=== PATIENT | male | born 1950 | race Asian ===

== ENCOUNTER 2023-11-27 01:44 | Emergency (ER) | payer OTHER ==
[~2023-11-27] VITALS: Ht 177.8 cm; Wt 104.3 kg
[2023-11-27 01:47] VITALS: TEMP 98.9
[2023-11-27] MEDS: IV NS 0.9% 500 ML BAG IV ONE (02:12)
[2023-11-27 02:19] LABS: BASOPHILS # (AUTO) 0.1 K/uL (0.0-0.2); BASOPHILS % (AUTO) 0.9 % (0.0-2.0); EOSINOPHILS # (AUTO) 0.2 K/uL (0.0-0.7); EOSINOPHILS % (AUTO) 2.3 % (0.0-6.0); HEMATOCRIT 34 % (39-51); HEMOGLOBIN 11.3 g/dL (13.5-17.5); LYMPHOCYTES # (AUTO) 1.2 K/uL (0.8-4.8); LYMPHOCYTES % (AUTO) 12.3 % (20.0-44.0); MEAN CORPUSCULAR HEMOGLOBIN 30 PG (26.0-33.0); MEAN CORPUSCULAR HGB CONC 33 g/dl (31.0-36.0); MEAN CORPUSCULAR VOLUME 90 fL (80-96); MONOCYTES # (AUTO) 0.8 K/uL (0.1-1.30); MONOCYTES % (AUTO) 8.6 % (2.0-12.0); NEUTROPHILS # (AUTO) 7.3 K/uL (1.8-8.9); NEUTROPHILS % (AUTO) 75.9 % (43.0-81.0); PLATELET COUNT (AUTO) 263 K/uL (150-450); RED CELL DISTRIBUTION WIDTH 14.8 % (11.5-15.0); WHITE BLOOD COUNT (AUTO) 9.6 K/uL (4.3-11.0)
[2023-11-27 02:32] LABS: ALANINE AMINOTRANSFERASE 32 U/L (12-78); ALBUMIN 2.8 g/dL (3.4-5.0); ALKALINE PHOSPHATASE 132 U/L (46-116); ASPARTATE AMINOTRANSFERASE 24 U/L (15-37); BILIRUBIN,DIRECT 0.1 mg/dL (0.0-0.2); BILIRUBIN,TOTAL 0.4 mg/dL (0.2-1.0); CALCIUM, SERUM 8.5 mg/dL (8.5-10.1); CARBON DIOXIDE 24 mmol/L (21-32); CHLORIDE 100 mmol/L (98-107); CREATININE 5.5 mg/dL (0.6-1.3); GLUCOSE 273 mg/dL (74-106); POTASSIUM 3.5 mmol/L (3.5-5.1); SODIUM SERUM 132 mmol/L (136-145); UREA NITROGEN, BLOOD 62 mg/dL (7-18)
[2023-11-27 02:33] LABS: INR 0.95 (0.91-1.10); PROTHROMBIN TIME 10.1 SECS (9.2-11.1)
[2023-11-27] MEDS ORDERED: hydrALAZINE HCL IV 20 MG VIAL ONE (04:42)
[2023-11-27] MEDS: hydrALAZINE HCL IV 20 MG VIAL IV ONE (04:45)
[2023-11-27 05:53] VITALS: BP 166/65; O2SAT 100
== END 2023-11-27 05:58 | disposition short-term general hospital (02) ==
LOC: ER 01:54
DX: R55 Syncope and collapse (principal); I16.0 Hypertensive urgency; E11.9 Type 2 diabetes mellitus without complications; I10 Essential (primary) hypertension
CPT/HCPCS: 99291; 96374; 70450; 93005; 71045; 85025; 80048; 80076; 36415; 84484; 85730; 86850; J0360